=== PATIENT | female | born 1950 | race Caucasian/White ===

== ENCOUNTER 2016-08-16 01:17 | Observation (INO) | payer MEDICARE, BC ==
[2016-08-16] MEDS ORDERED: ATORVASTATIN (01:28)
[2016-08-16] MEDS ORDERED: LEVOTHYROXINE (01:28)
[2016-08-16] MEDS ORDERED: EYE VITAMIN-MI1 EACH PO (01:29)
[2016-08-16] MEDS ORDERED: CREATINE (01:29)
[2016-08-16 01:59] LABS: BASO % 0.4 % (0-2); EOSINOPHIL ABSOLUTE COUNT 0.7 tho/cmm (0.0-0.7); HCT-HEMATOCRIT 42.6 % (34.0-49.0); HGB-HEMOGLOBIN 14.1 gm/dl (12.0-15.5); IMMATURE GRANULOCYTES ABSOLUTE 0.02 tho/cmm (0-0.03); IMMATURE GRANULOCYTES PERCENT 0.2 % (0-0.3); LYMPH % 26.5 % (20-45); LYMPH ABSOLUTE COUNT 2.5 tho/cmm (0.8-4.5); MCH (MEAN CORPUSCULAR HGB) 31.3 pg (28.0-32.0); MCHC MEAN CORPUSCULAR HGB CONC 33.1 % (32.0-36.0); MCV (MEAN CELL VOLUME) 94.5 fl (82.0-96.0); MEAN PLATELET VOLUME 9.9 cmc (9.4-12.4); MONO % 7.7 % (0-12); MONOCYTE ABSOLUTE COUNT 0.7 tho/cmm (0.0-1.2); NEUTROPHIL ABSOLUTE COUNT 5.4 tho/cmm (1.6-8.0); NEUTROPHIL-AUTOMATED 5.4 tho/cmm (1.6-8.0); NEUTROPHILS % 58.2 % (40-80); PLATELET COUNT 296 tho/cmm (150-450); RED BLOOD COUNT 4.51 mil/cmm (4.00-5.20); RED CELL DISTRIBUTION WIDTH 12.9 % (12.4-16.4); WHITE BLOOD COUNT 9.4 tho/cmm (4.0-10.0)
[2016-08-16 02:13] LABS: ALBUMIN 3.5 g/dl (3.5-5.0); ALKALINE PHOSPHATASE 88 U/L (33-138); ALT/SGPT 40 U/L (12-78); BILIRUBIN,TOTAL 0.2 mg/dl (0-1.5); BLOOD UREA NITROGEN 21 mg/dl (6-24); CALCIUM 8.6 mg/dl (8.5-10.5); CARBON DIOXIDE-VENOUS 25 mmol/L (22-32); CHLORIDE 109 mmol/l (96-110); CREATININE 1.04 mg/dl (0.50-1.10); GLUCOSE 148 mg/dL (70-110); SODIUM 141 mmol/L (135-145); eGFR VALUE FOR BLACK 66 mL/Min
[2016-08-16 02:19] LABS: ANION GAP 11 mmol/L (0-20); AST/SGOT 91 U/L (10-40); POTASSIUM 4.2 mmol/L (3.7-5.1)
[2016-08-16 05:55] LABS: CHOLESTEROL 203 mg/dl (120-200); HDL CHOLESTEROL 66 mg/dl (40-60); LDL CHOLESTEROL 115 mg/dl (0-99); TRIGLYCERIDES 111 mg/dl (<149); VLDL 22 mg/dl (0-30)
[2016-08-16] MEDS ORDERED: PROZAC20 M3 PO (09:57)
[2016-08-16] MEDS ORDERED: ATORVASTATIN CA40 M1 PO (09:57)
[2016-08-16] MEDS ORDERED: LEVOTHYROXINE112 MC3 PO (09:58)
[2016-08-16] MEDS ORDERED: DESLORATADINE5 M1 PO (09:58)
[2016-08-16 14:38] LABS: URINE BILIRUBIN NEGATIVE (NEG); URINE BLOOD SMALL (NEG); URINE GLUCOSE (UA) NEGATIVE (NEG); URINE KETONE NEGATIVE (NEG); URINE LEUKOCYTE ESTERASE POSITIVE (NEG); URINE NITRITE POSITIVE (NEG); URINE PROTEIN NEGATIVE (NEG)
[2016-08-16 14:40] LABS: URINE APPEARANCE HAZY; URINE COLOR YELLOW
[2016-08-16 14:44] LABS: URINE BACTERIA 4+; URINE EPITHELIAL CELLS 0-2 /[HPF] (0-10); URINE RBC 0-2 /[HPF] (0-5)
[2016-08-16 14:45] LABS: URINE WBC 20-40 /[HPF] (0-5)
[2016-08-17] MEDS ORDERED: BACTRIM DS TAB1 EAC2 PO (16:41)
== END 2016-08-17 16:55 ==
LOC: EDMED 01:17 → EMR2 04:24 → 5WD 05:01
PROVIDERS: Emergency Medicine Emergency Medical Services; Internal Medicine; Registered Nurse; ADMIT Internal Medicine
DX: R07.2 Precordial pain (principal); E78.5 Hyperlipidemia, unspecified; E03.9 Hypothyroidism, unspecified; R74.0 Nonspecific elevation of levels of transaminase and lactic acid dehydrogenase [LDH]; Z79.899 Other long term (current) drug therapy; Z82.49 Family history of ischemic heart disease and other diseases of the circulatory system; Z90.49 Acquired absence of other specified parts of digestive tract; Z90.89 Acquired absence of other organs; Z98.890 Other specified postprocedural states
CPT/HCPCS: A9540; A9558; G0378; J2270; J7040; Q9967